=== PATIENT | female | born 1965 | race Caucasian/White ===

== ENCOUNTER → 2024-02-20 07:54 | Outpatient (REF) | payer BC, SELFPAY | LOC: RAD 07:54 | PROVIDERS: ATTENDING PHYSICIAN Surgery Vascular Surgery; FAMILY PHYSICIAN Family Medicine | DX: I74.5 Embolism and thrombosis of iliac artery (principal) | CPT/HCPCS: 93922; 93925; 93978 ==

== ENCOUNTER → 2025-03-01 07:54 | Outpatient (REF) | payer BC, SELFPAY | LOC: RAD 07:54 | PROVIDERS: ATTENDING PHYSICIAN Surgery Vascular Surgery; FAMILY PHYSICIAN Family Medicine | DX: I74.5 Embolism and thrombosis of iliac artery (principal) | CPT/HCPCS: 93922; 93925; 93978 ==